=== PATIENT | female | born 1970 | race Caucasian/White ===

== ENCOUNTER 2021-09-25 18:04 | Emergency (ER) | payer BC, OTHER ==
--- NOTE | 2021-09-25 18:11 | ERPHSYRPT ---
- History of Present Illness Time Seen by Provider: 09/25/21 18:11 Source: patient Exam Limitations: no limitations Physician History: This is a 51-year-old obese white female who accidentally caught her right toenail on the edge of a door and suffered near complete nail avulsion. Patient is not diabetic Method of Injury: other (Right first toenail caught in door) Occurred: just prior to arrival Quality: constant, aching, throbbing Severity of Pain-Max: mild Severity of Pain-Current: mild Lower Extremities Pain: 1st toe: right (Near complete toenail avulsion) Modifying Factors: Improves With: nothing Allergies/Adverse Reactions: No Known Drug Allergies Allergy (Verified 09/25/21 18:17) Home Medications: Atorvastatin Calcium [Lipitor 40Mg] 40 mg PO DAILY 09/25/21 [History] Lisinopril 5 mg [Zestril 5 MG] 5 mg PO DAILY 09/25/21 [History] carvediloL [Carvedilol] 25 mg PO BID 09/25/21 [History] Travel Risk - International Travel Have you traveled outside of the country in past 3 weeks: No - Coronavirus Screening Are you exhibiting any of the following symptoms?: No Close contact with a COVID-19 positive Pt in past 14-21 Days: No - Review of Systems Constitutional: No Symptoms Eyes: No Symptoms Ears, Nose, & Throat: No Symptoms Respiratory: No Symptoms Cardiac: No Symptoms Abdominal/Gastrointestinal: No Symptoms Genitourinary Symptoms: No Symptoms Musculoskeletal: Injury (Right first toe and toenail) Skin: No Symptoms Neurological: No Symptoms Psychological: No Symptoms Endocrine: No Symptoms Hematologic/Lymphatic: No Symptoms Immunological/Allergic: No Symptoms All Other Systems: Reviewed and Negative - Past Medical History Pertinent Past Medical History: Yes - Past Surgical History Past Surgical History: Yes - Nursing Vital Signs Nursing Vital Signs: Initial Vital Signs Temperature 97.7 F 09/25/21 18:09 Pulse Rate 105 H 09/25/21 18:09 Blood Pressure 160/90 09/25/21 18:09 O2 Sat by Pulse Oximetry 96 09/25/21 18:09 Pain Scale Pain Intensity 0 - Physical Exam General Appearance: no apparent distress, alert, anxiety, obese Eyes, Ears, Nose, Throat Exam: normal ENT inspection, moist mucous membranes Neck Exam: normal inspection, non-tender, supple, full range of motion Cardiovascular/Respiratory Exam: chest non-tender, no respiratory distress Gastrointestinal/Abdominal Exam: non-tender Back Exam: normal inspection, normal range of motion, No CVA tenderness Hips Exam: bilateral: non-tender, normal inspection, normal range of motion, no evidence of injury Legs Exam: bilateral leg: non-tender, normal inspection, normal range of motion, no evidence of injury Knees Exam: bilateral knee: non-tender, normal inspection, normal range of motion, no evidence of injury Ankle Exam: bilateral ankle: non-tender, normal inspection, normal range of motion, no evidence of injury Foot Exam: right foot: nail injury (First toe near complete avulsion), pain (First toe) Neuro/Tendon Exam: normal sensation, normal motor functions, normal tendon functions, responds to pain Mental Status Exam: alert, oriented x 3, cooperative Skin Exam: normal color, warm, dry SpO2 Interpretation: normal O2 Delivery: Room Air Procedures - Additional Procedures Progress: The procedure of removing near complete nail avulsion of right great toe was performed after cleansing the area with Hibiclens solution. Patient did not want any injectable lidocaine. We used hemostats to remove the avulsed nail from the right great toe without complications. The area was cleaned by the nurse and then antibiotic ointment (bacitracin) was applied to the nailbed site and a nonstick gauze and pressure dressing was then applied. Patient taught the procedure well. The procedure was performed at approximately 1810 and a timeout was performed at this time. - Course Nursing assessment & vital signs reviewed: Yes - Progress Progress: improved, pain not gone completely Progress Note: 09/25/21 18:36 Patient refused any intradermal lidocaine or oral pain medication. She also refused home pain medication. Counseled pt/family regarding: diagnosis, need for follow-up - Departure Departure Disposition: Home Clinical Impression: Nail avulsion of toe Condition: Stable Critical Care Time: No Additional Instructions: Soak right foot/great toe in warm soapy water and Epson salts twice a day. Blot dry or use a hairdryer to dry the site and reapply antibiotic ointment of choice covering nailbed site with nonstick gauze and bandage. Take antibiotics as prescribed. Prescriptions: Cephalexin Mh 500 mg [Keflex 500 mg] 500 mg PO TID #15 cap
[2021-09-25 18:16] VITALS: BP 160/90; PULSE 105; O2SAT 96
== END 2021-09-25 18:44 | disposition home or self-care (01) ==
LOC: ED 18:04
DX: S91.201A Unspecified open wound of right great toe with damage to nail, initial encounter (principal); W23.1XXA Caught, crushed, jammed, or pinched between stationary objects, initial encounter; Z79.899 Other long term (current) drug therapy
CPT/HCPCS: 99283

== ENCOUNTER 2022-12-02 16:12 | Emergency (ER) | payer OTHER ==
--- NOTE | 2022-12-02 16:21 | ERPHSYRPT ---
- History of Present Illness Time Seen by Provider: 12/02/22 16:21 Source: patient Exam Limitations: no limitations Physician History: This is a 52-year-old obese white female patient of Dr. Mccain and audio visual manager Dr. Shah who has a history of hypertension and hyperlipidemia. She is taking lisinopril. She has been on lisinopril for years and never had any issues. She also states that there is been no change in her dosing. This morning, she noticed that her lower lip was swollen and edematous and she noticed some tightness in her throat and swelling of her hands. She has no chest pain. She is not short of breath. She has no abdominal pain. Patient has no other known exposures. She has no known drug allergies or any other type of allergies. Patient took 50 mg of Benadryl orally prior to arrival. It was approximately 2 hours prior to her arriving to the emergency department that she took the Benadryl. Timing/Duration: today Severity: mild (To moderate) Associated Symptoms: denies symptoms, No shortness of breath, No chest pain Allergies/Adverse Reactions: No Known Drug Allergies Allergy (Verified 09/25/21 18:17) Home Medications: Atorvastatin Calcium [Lipitor 40Mg] 40 mg PO DAILY 09/25/21 [History] Lisinopril 5 mg [Zestril 5 MG] 5 mg PO DAILY 09/25/21 [History] carvediloL [Carvedilol] 25 mg PO BID 09/25/21 [History] Hx Tetanus, Diphtheria Vaccination/Date Given: No Travel Risk - International Travel Have you traveled outside of the country in past 3 weeks: No - Coronavirus Screening Are you exhibiting any of the following symptoms?: No Close contact with a COVID-19 positive Pt in past 14-21 Days: No - Vaccine Status Have you recieved a Covid-19 vaccination: Yes Car Oiler: Moderna - Vaccination Dates Date of 2cond Vaccination (if applicable): 10/2020 - Review of Systems Constitutional: No Symptoms Eyes: No Symptoms Ears, Nose, & Throat: Other (Swollen lower lip, mild tightness in her throat) Respiratory: No Symptoms Cardiac: No Symptoms Abdominal/Gastrointestinal: No Symptoms Genitourinary Symptoms: No Symptoms Musculoskeletal: Other (Mild swelling bilateral hands) Skin: No Rash Neurological: No Symptoms Psychological: No Symptoms Endocrine: No Symptoms Hematologic/Lymphatic: No Symptoms Immunological/Allergic: No Symptoms All Other Systems: Reviewed and Negative - Past Medical History Pertinent Past Medical History: Yes Cardiac History: High Cholesterol, Hypertension - Past Surgical History Past Surgical History: Yes Other Surgical History: ablasion - Social History Smoking Status: Never smoker Exposure to second hand smoke: No Drug Use: none Patient Lives Alone: No - Nursing Vital Signs Nursing Vital Signs: Initial Vital Signs O2 Sat by Pulse Oximetry 98 12/02/22 16:48 Pain Scale Pain Intensity 0 - Physical Exam General Appearance: no apparent distress, alert, anxiety, obese Eye Exam: PERRL/EOMI, eyes nml inspection Ears, Nose, Throat Exam: moist mucous membranes, other (Edematous lower lip) Neck Exam: normal inspection, non-tender, supple, full range of motion Respiratory Exam: normal breath sounds, lungs clear, airway intact, No chest tenderness, No respiratory distress, No wheezing, No stridor Cardiovascular Exam: tachycardia (Mild) Gastrointestinal/Abdomen Exam: soft, normal bowel sounds, No tenderness Pelvic Exam: not done Rectal Exam: not done Back Exam: normal inspection, normal range of motion, No CVA tenderness, No vertebral tenderness Extremity Exam: normal range of motion, pelvis stable, swelling (Although they do not appear swollen to me, the patient states for her, her bilateral hands are a bit swollen) Neurologic Exam: alert, oriented x 3, cooperative, 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-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 nml as tested, normal mood/affect, nml cerebellar function, nml station & gait, sensation nml Skin Exam: normal color, warm, dry, other (No rash) Lymphatic Exam: No adenopathy SpO2 Interpretation: normal O2 Delivery: Room Air - Course Nursing assessment & vital signs reviewed: Yes Ordered Tests: Active Orders 24 hr Category Date Time Status IV Insertion STAT Care 12/02/22 17:04 Active Medication Summary Discontinued Medications Generic Name Dose Route Start Last Admin Trade Name Vinicioq PRN Reason Stop Dose Admin Methylprednisolone Sodium 0 mg 12/02/22 16:52 12/02/22 17:08 Succinate 125 mg/ Sterile IV 12/02/22 16:53 125 mg Water 2 ml STAT ONE Administration Famotidine 40 mg 12/02/22 16:53 12/02/22 17:08 Famotidine 20 Mg/1 Vial IV 04/03/23 16:54 40 mg STAT ONE Administration Famotidine Confirm 12/02/22 17:06 Famotidine 20 Mg/1 Vial Administered 12/02/22 17:07 Dose 40 mg IV .STK-MED ONE Methylprednisolone Sodium Succinate Confirm 12/02/22 17:06 Methylprednis Sod Succ 125 Mg/2 Ml Vial Administered 12/02/22 17:07 Dose 125 mg .ROUTE .STK-MED ONE Sterile Water Confirm 12/02/22 17:05 Water For Injection,Sterile 10 Ml Vial Administered 12/02/22 17:06 Dose 10 ml IJ .STK-MED ONE - Progress Progress: improved, re-examined Progress Note: 12/02/22 17:19 This patient's medical issue is 1 of moderate complexity. The complexity and the work-up was based on the patient's past medical history, review of the patient's medication list, review the patient's drug allergies, history of present illness and findings on physical examination. The work-up performed with us to place an intravenous line, infusion of 125 mg intravenous Solu- Medrol, 40 mg Pepcid intravenous infusion. We did frequent examinations during the remainder of her stay. Symptoms are resolving. Patient, I feel, has angioedema secondary to her lisinopril. Her instructions are to stop her lisinopril until she has spoken with both Dr. Mccain and her audio visual manager re garding whether or not she should continue this medication or change to a different medication. She is to continue Benadryl 25 to 50 mg orally every 8 hours for the next 4 days. She is to take her Pepcid and prednisone as prescribed. She is also to return to the emergency department if symptoms recur/worsen Counseled pt/family regarding: diagnosis, need for follow-up Medical Desision Making - Discussion of managment Agreed on:: Treatment plan, need for follow-up - Diagnostic Testing Diagnostic test were ordered, analyzed, and reviewed by me: Yes - Risk of complications The pt has a mod risk of morbidity or mortality based on: Need for prescription drug management - Departure Departure Disposition: Home Clinical Impression: Angioedema, Medication side effect Condition: Stable Critical Care Time: No Additional Instructions: Hold your lisinopril. Call your audio visual manager and primary care physician tomorrow to determine if you are to continue the lisinopril medication. Take 25 to 50 mg Benadryl orally every 8 hours for the next 4 days. Take your new medication as prescribed. Prescriptions: Prednisone 10 mg [Deltasone 10 mg] 10 mg PO TID #12 tablet Famotidine 20 mg [Pepcid 20 MG] 20 mg PO DAILY #10 tablet
[2022-12-02] MEDS ORDERED: solu-MEDROL 125 MG, Sterile H2O 10 ml 2 ML IV ONE ×2 (16:52)
[2022-12-02] MEDS ORDERED: Pepcid 20 MG VIAL IV ONE ×2 (16:53→17:06)
[2022-12-02] MEDS ORDERED: Sterile H2O 10 ml IJ ONE (17:05)
[2022-12-02] MEDS ORDERED: solu-MEDROL ONE (17:06)
[2022-12-02 18:13] VITALS: BP 133/78; PULSE 96; O2SAT 97
== END 2022-12-02 18:16 | disposition home or self-care (01) ==
LOC: ED 16:12
DX: T78.3XXA Angioneurotic edema, initial encounter (principal); T46.4X5A Adverse effect of angiotensin-converting-enzyme inhibitors, initial encounter; I10 Essential (primary) hypertension; E78.5 Hyperlipidemia, unspecified; Z79.52 Long term (current) use of systemic steroids; Z79.899 Other long term (current) drug therapy
CPT/HCPCS: 36000; 96374; 96375; 99284; J2930